=== PATIENT | male | born 1990 | race Caucasian/White ===

== ENCOUNTER 2018-04-19 11:42 | Emergency (ER) | payer MEDICAID, OTHER, SELFPAY ==
[~2018-04-19] VITALS: Ht 167.6 cm; Wt 83.0 kg
[2018-04-19 11:58] VITALS: BP 123/83
[2018-04-19] MEDS ORDERED: HYDROcodone/APAP 5/325 TABLET ONE (12:26)
[2018-04-19] MEDS ORDERED: ONDANSETRON ODT 4 MG ONE (12:27)
[2018-04-19] MEDS ORDERED: ONDANSETRON ODT 4 MG PO ONE (12:30)
[2018-04-19] MEDS ORDERED: HYDROcodone/APAP 5/325 TABLET PO ONE (12:30)
== END 2018-04-19 12:46 | disposition home or self-care (01) ==
LOC: ED 12:30
DX: K04.7 Periapical abscess without sinus (principal); F17.200 Nicotine dependence, unspecified, uncomplicated
CPT/HCPCS: 41800; 99283; Q0162

== ENCOUNTER 2020-07-07 15:13 | Emergency (ER) | payer MEDICAID ==
[~2020-07-07] VITALS: Ht 167.6 cm; Wt 90.8 kg
[2020-07-07 15:38] VITALS: BP 125/81
--- NOTE | 2020-07-07 16:18 | NUR ---
PT TO TRIAGE ROOM FOR EVAL BY ER PA POC DISCUSSED AND ORDERS REC'D. PT RTD TO [facility] NOTED AWAITING ROOM ASSIGNMENT
--- NOTE | 2020-07-07 16:24 | NUR ---
ULTRASOUND COORDINATOR: PT TO ROOM FROM LOBBY
[2020-07-07] MEDS ORDERED: OXYcodone/APAP 5/325MG TABLET PO ONE (16:30)
[2020-07-07] MEDS ORDERED: LIDOCAINE-MPF 1%, 5ML INFIL ONE (16:30)
[2020-07-07] MEDS ORDERED: LIDOCAINE-MPF 1%, 2ML ONE (16:48)
[2020-07-07] MEDS ORDERED: OXYcodone/APAP 5/325MG TABLET ONE (16:48)
== END 2020-07-07 17:48 | disposition home or self-care (01) ==
LOC: ED 17:15
DX: K02.9 Dental caries, unspecified (principal); K08.89 Other specified disorders of teeth and supporting structures
CPT/HCPCS: 64400; 99284

== ENCOUNTER 2020-11-21 04:18 | Emergency (ER) | payer MEDICAID ==
[~2020-11-21] VITALS: Ht 167.6 cm; Wt 89.1 kg
--- NOTE | 2020-11-21 04:19 | NUR ---
Pt reports R flank pain x3hrs, reports blood in urine, and hx of kidney stones. Pt has profuse diaphoresis, unable to sit still, writhing in pain and yelling out obscenities. Pt connected to BP and O2 monitors, VSS, IV placed, labs drawn. Pt made aware of need for UA.
[2020-11-21] MEDS ORDERED: ONDANSETRON 2MG/ML, 2ML ONE (04:39)
[2020-11-21] MEDS ORDERED: KETOROLAC 30 MG/1 ML ONE (04:39)
[2020-11-21] MEDS ORDERED: ONDANSETRON 2MG/ML, 2ML IVPush ONE (05:00)
[2020-11-21] MEDS ORDERED: HYDROmorphone 1 MG/ML, 1ML INJ IV ONE (05:00)
[2020-11-21] MEDS ORDERED: KETOROLAC 30 MG/1 ML IVPush ONE (05:00)
[2020-11-21 05:15] LABS: MEAN CORPUSCULAR HEMOGLOBIN 30.8 pg (27.5-34.5); MEAN PLATELET VOLUME 6.9 fL (7.4-10.4); PLATELET COUNT 356 x10^3/uL (130-400); RED BLOOD COUNT 5.66 x10^6/uL (4.38-5.82); RED CELL DISTRIBUTION WIDTH 14.7 % (9.4-14.8)
[2020-11-21 05:29] LABS: ALBUMIN 3.7 g/dL (3.4-5.0); ANION GAP 11 mmol/L (5-15); CALCIUM 9.6 mg/dL (8.5-10.1); CHLORIDE 106 mmol/L (98-107)
--- NOTE | 2020-11-21 05:30 | NUR ---
Pt again made aware of need for UA
[2020-11-21 05:32] LABS: ALANINE AMINOTRANSFERASE 30 U/L (12-78); ALKALINE PHOSPHATASE 69 U/L (45-117); BILIRUBIN,TOTAL 0.4 mg/dL (0.2-1.0); CREATININE 1.53 mg/dL (0.7-1.3); TOTAL PROTEIN 7.5 g/dL (6.4-8.2)
[2020-11-21 05:53] LABS: MD YES
[2020-11-21 05:54] LABS: MONOS#(MANUAL) 0.84 x10^3/uL (0.3-2.7); MONOS% (MANUAL) 4 % (2-9); SEG#(MANUAL) 10.87 x10^3/uL (1.8-6.8); SEGS% (MANUAL) 52 % (42-75)
[2020-11-21 05:55] LABS: EOS#(MANUAL) 0.42 x10^3/uL (0.0-0.4); EOS% (MANUAL) 2 % (1-7); LYMPH#(MANUAL) 8.78 x10^3/uL (1-3.4); LYMPHS% (MANUAL) 42 % (22-44)
[2020-11-21 05:56] LABS: <PLATELET ESTIMATE> ADEQUATE; <PLT MORPHOLOGY> NORMAL PLT MORPH; <RBC MORPHOLOGY> NORMAL
[2020-11-21 06:35] LABS: MICROSCOPIC INDICATED
--- NOTE | 2020-11-21 07:00 | NUR ---
assumed care of pt. report from Carla GARNER and Linda GARNER. pt here for evaluation of possible kidney stone. pt has hx of same. per report, pt has been medicated for pain and is currently up for recheck pt sleeping on gurney in position of comfort. no family at bedside
--- NOTE | 2020-11-21 07:52 | NUR ---
no changes. awaiting MD recheck
--- NOTE | 2020-11-21 08:10 | NUR ---
awaiting recheck report to Tanvir GARNER for lunch
[2020-11-21 09:25] VITALS: BP 129/76
== END 2020-11-21 09:30 | disposition home or self-care (01) ==
LOC: ED 06:34
DX: N20.2 Calculus of kidney with calculus of ureter (principal); F17.210 Nicotine dependence, cigarettes, uncomplicated
CPT/HCPCS: 36415; 76770; 80053; 81001; 83690; 85025; 87086; 96374; 96375; 99284; 99406; J1885; J2405